=== PATIENT | male | born 1985 | race Caucasian/White ===

== ENCOUNTER 2023-04-29 10:10 | Emergency (ER) | payer MEDICAID ==
[~2023-04-29] VITALS: Ht 170.2 cm; Wt 88.5 kg
[2023-04-29 10:15] VITALS: BP_SYST 133; PULSE 70; RESP 18; TEMP 98.3; O2SAT 98
[2023-04-29] MEDS ORDERED: CORTEARS RIGHT EAR (10:24)
[2023-04-29] MEDS ORDERED: IBUP-1971 PO (10:24)
[2023-04-29 10:45] VITALS: BP_SYST 111; PULSE 70; RESP 16; TEMP 98.1; O2SAT 98
== END 2023-04-29 13:32 | disposition home or self-care (01) ==
LOC: SED 10:10
DX: H60.92 Unspecified otitis externa, left ear (principal); H92.02 Otalgia, left ear; Z79.899 Other long term (current) drug therapy
CPT/HCPCS: 99283